=== PATIENT | male | born 1965 | race Hispanic/Latino ===

== ENCOUNTER 2021-08-31 23:47 | Emergency (ER) | payer OTHER ==
[2021-09-01] MEDS ORDERED: Boostrix 0.5 ML (Tdap) VIAL ONE (00:24)
== END 2021-09-01 00:37 ==
LOC: ERS 23:47
DX: S01.01XA Laceration without foreign body of scalp, initial encounter (principal); I10 Essential (primary) hypertension; W50.0XXA Accidental hit or strike by another person, initial encounter; Z23 Encounter for immunization
CPT/HCPCS: 12001; 90471; 90715